=== PATIENT | male | born 1960 | race Caucasian/White ===

== ENCOUNTER 2021-01-06 08:03 | Emergency (ER) | payer MEDICARE ==
[2021-01-06 09:16] LABS: HEMOGLOBIN 13.6 gm/dl (14.0-17.5); RED BLOOD COUNT 4.11 M/UL (4.20-5.50); WHITE BLOOD COUNT 4.7 K/UL (4.5-11.0)
[2021-01-06 09:48] LABS: BUN/CREATININE RATIO 14 (0-10)
[2021-01-06] MEDS ORDERED: VIBRAMYCIN100 MG PO (11:08)
[2021-01-06] MEDS ORDERED: PREDNISONE 20 M20 MG PO (11:08)
== END 2021-01-06 13:02 | disposition home or self-care (01) ==
LOC: ER1 08:03
PROVIDERS: Physician Assistant
DX: U07.1 COVID-19 (principal); J44.1 Chronic obstructive pulmonary disease with (acute) exacerbation; R91.1 Solitary pulmonary nodule; I48.91 Unspecified atrial fibrillation; I10 Essential (primary) hypertension; F17.200 Nicotine dependence, unspecified, uncomplicated; Z86.73 Personal history of transient ischemic attack (TIA), and cerebral infarction without residual deficits
CPT/HCPCS: 0240U; 36415; 36600; 71045; 80053; 82550; 82553; 82803; 83874; 83880; 84484; 85025; 93005; 96374; 99285

== ENCOUNTER → 2021-10-16 | Outpatient (CLI) | payer MEDICARE ==
[~2021-10-16] MED LIST: PREDNISONE 20 M20 MG PO; VIBRAMYCIN100 MG PO
== END ==
LOC: KOH-I 10:40
DX: F17.210 Nicotine dependence, cigarettes, uncomplicated (principal); R91.1 Solitary pulmonary nodule
CPT/HCPCS: 71271